=== PATIENT | male | born 1980 | race Two or more races ===

== ENCOUNTER 2024-07-27 15:42 | Emergency (ER) | payer OTHER ==
[~2024-07-27] VITALS: Ht 182.9 cm; Wt 108.4 kg
[2024-07-27] MEDS ORDERED: diphenhydrAMINE HCL 50 MG/ML VIAL ONE (16:27)
[2024-07-27] MEDS ORDERED: METOCLOPRAMIDE HCL 10 MG/2 ML VIAL ONE (16:27)
[2024-07-27] MEDS ORDERED: ACETAMINOPHEN ES 500 MG TABLET ONE (16:27)
[2024-07-27] MEDS: IV NS 0.9% 1,000 ML BAG IV ONE (16:33)
[2024-07-27] MEDS: diphenhydrAMINE HCL 50 MG/ML VIAL IV ONE (16:33)
[2024-07-27] MEDS: METOCLOPRAMIDE HCL 10 MG/2 ML VIAL IV ONE (16:33)
[2024-07-27] MEDS: ACETAMINOPHEN ES 500 MG TABLET PO ONE (16:34)
[2024-07-27 16:45] LABS: BASOPHILS # (AUTO) 0.1 K/uL (0.0-0.2); BASOPHILS % (AUTO) 0.6 % (0.0-2.0); EOSINOPHILS # (AUTO) 0.1 K/uL (0.0-0.7); EOSINOPHILS % (AUTO) 1.2 % (0.0-6.0); HEMATOCRIT 43 % (39-51); LYMPHOCYTES # (AUTO) 2.4 K/uL (0.8-4.8); LYMPHOCYTES % (AUTO) 24.7 % (20.0-44.0); MEAN CORPUSCULAR HEMOGLOBIN 29 PG (26.0-33.0); MEAN CORPUSCULAR HGB CONC 35 g/dl (31.0-36.0); MEAN CORPUSCULAR VOLUME 83 fL (80-96); MONOCYTES # (AUTO) 0.4 K/uL (0.1-1.30); MONOCYTES % (AUTO) 4.2 % (2.0-12.0); NEUTROPHILS # (AUTO) 6.7 K/uL (1.8-8.9); NEUTROPHILS % (AUTO) 69.3 % (43.0-81.0); PLATELET COUNT (AUTO) 228 K/uL (150-450); RED BLOOD CELL COUNT(AUTO) 5.11 MIL/uL (4.5-6.0); RED CELL DISTRIBUTION WIDTH 12.8 % (11.5-15.0); WHITE BLOOD COUNT (AUTO) 9.6 K/uL (4.3-11.0)
[2024-07-27 16:56] LABS: CALCIUM, SERUM 9.2 mg/dL (8.5-10.1); POTASSIUM 4.1 mmol/L (3.5-5.1)
[2024-07-27 17:50] VITALS: BP 125/73; TEMP 98.3; O2SAT 100
== END 2024-07-27 17:54 | disposition home or self-care (01) ==
LOC: ER 16:04
DX: R51.9 Headache, unspecified (principal); R11.2 Nausea with vomiting, unspecified; I10 Essential (primary) hypertension
CPT/HCPCS: 99284; 96374; 96361; 96375; 85025; 80048; 36415; J1200; J2765